=== PATIENT | male | born 2000 | race Caucasian/White ===

== ENCOUNTER 2022-06-16 08:38 | Outpatient (REF) | payer OTHER, SELFPAY ==
--- NOTE | ~2022-06-16 | MM_ITS ---
EXAMINATION: MM DIAGNOSTIC DIGITAL BREAST TOMOSYNTHESIS, BILATERAL US TARGETED BREAST, RIGHT CLINICAL INFORMATION: Periareolar palpable lesion. COMPARISON: Mammography: None TECHNIQUE: Digital breast tomosynthesis is performed in both the craniocaudal and mediolateral oblique views along with computer-aided detection (CAD). Synthesized 2D images are generated from the tomosynthesis. FINDINGS: The breasts are almost entirely fatty (ACR BI-RADS breast composition Category a). There are no significant masses, abnormal calcifications, or other abnormalities. Targeted right breast ultrasound did not demonstrate any abnormal cystic or solid mass. No region of abnormal distal sound shadowing identified. No edematous change within the parenchyma is seen. Results are discussed with the patient at time of visit. MM/MM tomosynthesis diagnostic BI IMPRESSION: No mammographic or ultrasound evidence of malignancy. ASSESSMENT: BI-RADS 1: Negative RECOMMENDATION: 1. Patient should be managed based on the clinical impression. Decision to proceed with biopsy should be based on clinical grounds and degree of clinical concern.
== END 2022-06-16 08:39 | disposition home or self-care (01) ==
LOC: HO.MAMMO 08:38
PROVIDERS: PCP Family Medicine; Visit Provider Family Medicine
DX: N63.13 Unspecified lump in the right breast, lower outer quadrant (principal)
CPT/HCPCS: 76642; 77062; 77066

== ENCOUNTER 2022-07-02 07:03 | Outpatient (REF) | payer OTHER, SELFPAY ==
[2022-07-02 11:34] LABS: Appearance Urine Clear; Color Urine Yellow; Glucose Urine UA Negative (Negative); Leukocyte Esterase Urine Negative (Negative); Nitrite Urine Negative (Negative); Specific Gravity - Urine 1.015 (1.005-1.025); Urine Blood Negative (Negative); Urine Ketones Negative (Negative); Urine Protein Negative (Neg-Trace)
[2022-07-02 12:47] LABS: Alanine Aminotransferase 17 U/L (0-40); Albumin Level 4.4 g/dL (3.5-5.0); Alkaline Phosphatase 101 U/L (39-117); Anion Gap 14 (12-20); Aspartate Amino Transferase 16 U/L (5-37); Bilirubin Total 1.2 mg/dL (0.0-1.0); Blood Urea Nitrogen 17 mg/dL (9-16); Calcium 9.2 mg/dL (8.4-10.2); Carbon Dioxide 26 mmol/L (22-29); Chloride 104 mmol/L (96-108); Cholesterol 120 mg/dL; Estimated Glomerular Filt Rate > 60; Glucose Fasting 69 mg/dL (60-99); HDL Cholesterol 56 mg/dL; LDL Cholesterol Calculated 56 mg/dl; Potassium 4.2 mmol/L (3.3-5.1); Sodium 140 mmol/L (135-145); Total Protein 6.9 g/dL (6.5-8.0); Triglycerides 43 mg/dL
[2022-07-02 12:51] LABS: Creatinine Urine 97.04 mg/dL; Microalbumin Urine < 5.0 mg/L; Syphilis Screen Nonreactive (Nonreactive)
[2022-07-02 13:06] LABS: TSH reflex Free T4 2.12 uIU/mL (0.32-4.0)
[2022-07-02 13:13] LABS: HBS Num1 1.52 mIU/mL (0-7.99); HBc Num1 0.08 S/CO (0.00-0.79); HBsAGNum1 0.51 S/CO (0.00-0.99); HIV AB/AG Nonreactive (Nonreactive); HIV Num 1 0.07 S/CO (0.00-0.99); Hepatitis B Core Antibody Nonreactive (Nonreactive); Hepatitis B Surface Antigen Negative (Negative); ~HepC Num1 0.31 S/CO (0.00-0.79); ~Hepatitis B Surface Antibody NONREACTIVE (Nonreactive); ~Hepatitis C Antibody Nonreactive (Nonreactive)
== END 2022-07-02 07:04 | disposition home or self-care (01) ==
LOC: HO.WFDLDS 07:03
PROVIDERS: Visit Provider Family Medicine
DX: Z00.00 Encounter for general adult medical examination without abnormal findings (principal); I10 Essential (primary) hypertension; Z20.2 Contact with and (suspected) exposure to infections with a predominantly sexual mode of transmission
CPT/HCPCS: 36415; 80053; 80061; 81003; 82043; 84443; 86704; 86706; 86780; 86803; 87340; 87389

== ENCOUNTER 2022-09-15 13:17 | Outpatient (AMB) | payer OTHER, SELFPAY ==
--- NOTE | 2022-09-15 13:23 | MHC.PC.OV ---
Vital Signs 09/15/22 13:24 Height 5 ft 8 in Weight 173 lb 6 oz BMI 26.4 BP 110/70 Blood Pressure Location Lt brachial Position Sitting Pulse 70 Pulse Source Pulse Oximeter Pulse Oximetry (%) 99 Oxygen Delivery Method Room Air Intake Visit Reasons: CPE Intake Note: Patient is here for his ohysical today. Patient would like to be tested today for Lyme Disease. Allergies Penicillins Allergy (Mild, Verified 09/15/22 13:28) Hives Tobacco use date assessed: 07/30/22 Dental Screening Dental Screen Date: 09/15/22 Did you have a dental visit in the last 12 months?: No Did you have a dental problem in the last 6 months where you did not have access to dental care?: No Was dental information given to patient?: No HPI CPE HPI Details 22 y/o male presents for a CPE with f/u labs. Pt would like to be tested for lyme disease. He reports multiple joint pain, fatigue. Pt reports hearing changes. He states he goes to the gym a couple times a week for exercise. He reports he has a therapist now for his anxiety. REPLACED BY [facility] Medical History Asthma Surgical History Reading teeth removed Family History Mother Breast cancer Social History Household Members: Family Household Members Other:: Parents Both parents involved: Yes Caregiver staying overnight: No Housing: House Are you a primary healthcare economics consultant to a significant other at home: No Do you presently have visiting nurse or other home services: No 75 years or older and lives alone: No Alcohol intake: current Patient Tobacco Use Status: Never used Tobacco e-Cigarette/Vaping Use: Currently Using service: No Current occupational status: employed Current occupation: mill machinist Current occupational exposures/hazards: Yes Cognitive needs: No Hearing needs: No Vision needs: No Review of Systems Const Denies chills, Denies fatigue, Denies fever(s), Denies headache(s) and Denies weakness Eyes Denies change in vision ENT Denies dizziness, Denies headache(s), Denies hearing loss, Denies nasal congestion, Denies sinus pain, Denies sinus pressure and Denies sore throat Card Denies chest pain, Denies lightheadedness, Denies dyspnea and Denies other (palpitations) Resp Denies cough, Denies dyspnea and Denies wheezing GI Denies abdominal pain, Denies melena, Denies hematochezia, Denies change in bowel habits, Denies dyspepsia and Denies nausea Denies hematuria and Denies dysuria Musc Denies abnormal gait, Denies myalgias, Denies arthralgias, Denies numbness and Denies tingling Skin/Breast Denies rash, Denies unusual bruising and Denies wounds Neuro Denies abnormal gait, Denies dizziness, Denies headache(s), Denies memory loss, Denies numbness, Denies Sensory deficit (Neuro), Denies tingling and Denies weakness Psych Reports anxiety, Denies depression and Denies memory loss Endo Denies cold intolerance, Denies fatigue, Denies heat intolerance, Denies polydipsia and Denies polyuria Kevin/Lymph Denies easy bleeding and Denies easy bruising Aller/Immun Denies wheezing Physical exam (Primary Care) Vital Signs: Last Vital Signs Pulse 70 09/15/22 13:24 BP 110/70 09/15/22 13:24 Pulse Ox 99 09/15/22 13:24 Oxygen Delivery Method Room Air 09/15/22 13:24 BMI result Body Mass Index 26.4 Tobacco/Smoking Status: Tobacco use Status Tobacco use date assessed 07/30/22 09/15/22 13:24 Patient Tobacco Use Status Never used Tobacco 09/15/22 13:24 e-Cigarette/Vaping Use Currently Using 09/15/22 13:24 Const General: no acute distress, well developed, alert and awake Nutritional Appearance: well nourished Orientation/consciousness: patient oriented x3 HENMT Head: Yes normocephalic and Yes atraumatic Ears: hearing grossly normal bilaterally and TM's normal bilaterally General nose exam: Normal external nose present and Normal nares present Mouth: Normal oral and palatal mucosa present and moist mucous membranes Teeth and gingiva: dentition normal Throat: Yes posterior oropharynx normal Eyes General: appearance normal, both eyes and all related structures Pupils: Equal, round and reactive pupils present and Pupil accommodation reflex normal EOM: EOMs intact bilaterally Neck Neck: Yes normal visual inspection, Yes no lymphadenopathy and Yes trachea midline Thyroid: Thyroid normal Carotids: no bruits Lymphatic: no lymphadenopathy noted Chest Chest palpation & inspection: normal inspection of the chest Resp Effort & Inspection: normal respiratory effort Auscultation: clear to auscultation bilaterally Cardio Rate: regular rate Rhythm: regular rhythm Heart sounds: S1 normal heart sound present, S2 normal heart sound present, no gallops, no murmurs and no rubs Bruits: no abdominal aortic bruits and no carotid bruits GI Palpation (GI): No Abdominal aortic bruit present, Soft to palpation, nontender, No hepatosplenomegaly present and No Rebound tenderness present Auscultation: normal bowel sounds General: Yes no CVA tenderness Back/Spine/Pelvis Back: no CVA tenderness Cervical Spine: cervical ROM normal and No Cervical spine tenderness Thoracic/Lumbar Spine: thoraco-lumbar ROM normal, No pain with thoraco-lumbar ROM, No thoracic spinal tenderness and No lumbar spinal tenderness Skin Lesions: no lesions Rashes: no rashes Trauma: no lacerations or abrasions Wounds: no wounds Nails: normal Neuro General: patient oriented x3 Cranial nerves: Yes Equal, round and reactive pupils present Cognition (Neuro): normal cognition Gait exam (Neuro): Normal gait present Motor exam (neuro): 5/5 motor strength present throughout Sensory Exam: No Sensory deficit (Neuro) Deep tendon reflexes (DTR's): Right patellar reflex intensity grade: 2+ and Left patellar reflex intensity grade: 2+ Extrem General: Yes normal to inspection and No edema Psych Appearance: grossly normal Affect: normal affect Attitude: cooperative Thought process: Normal thought process present Assessment and Plan Assessment & Plan (1) Adult general medical exam: Code(s): Z00.00 - Encounter for general adult medical examination without abnormal findings Plan: 22-year-old male presents for complete physical exam Encouraged healthy diet with active lifestyle and plenty of exercise (2) Polyarthralgia: Code(s): M25.50 - Pain in unspecified joint Plan: Migrating polyarthralgias Patient is concerned about Lyme disease Will check Lyme titers as well as inflammatory markers (3) Change in hearing: Code(s): H91.90 - Unspecified hearing loss, unspecified ear Plan: Check audiology (4) Anxiety: Code(s): F41.9 - Anxiety disorder, unspecified Plan: Ongoing anxiety He now has a therapist He notes difficulty with memory and concentration and these may be related anxiety Encouraged working with therapist on above Again reiterated that there are medications which may help with anxiety (5) Chronic diarrhea: Code(s): K52.9 - Noninfective gastroenteritis and colitis, unspecified Plan: Hydrate well Trial soluble fiber tablet Orders: Orders CRP High Sensitivity Today M25.50 - Pain in unspecified joint Erythrocyte Sedimentation Rate Today M25.50 - Pain in unspecified joint Lyme IgG/IgM w/reflex to WB Today M25.50 - Pain in unspecified joint Referrals Audiology Referral H91.90 - Unspecified hearing loss, unspecified ear Medications: New calcium polycarbophil (FiberCon) 625 mg PO DAILY 30 tabs 2RF 30 days Coding Level of Care Code Est Pt Level 3 (97821) Est Pt Prev Care 18-39y(82076) Diagnoses Adult general medical exam Z00.00 Polyarthralgia M25.50 Change in hearing H91.90 Anxiety F41.9 Chronic diarrhea K52.9
[2022-09-15 13:24] VITALS: BP 110/70; PULSE 70; O2SAT 99; BMI 26.4
== END 2022-09-15 13:25 | disposition home or self-care (01) ==
PROVIDERS: PCP Family Medicine; Visit Provider Family Medicine
DX: Z00.00 Encounter for general adult medical examination without abnormal findings (principal); F41.9 Anxiety disorder, unspecified; M25.50 Pain in unspecified joint; K52.9 Noninfective gastroenteritis and colitis, unspecified
CPT/HCPCS: 99395